=== PATIENT | female | born 1980 | race Caucasian/White ===

== ENCOUNTER 2017-05-13 08:22 | Day surgery (SDC) | payer OTHER ==
--- NOTE | 2017-05-12 19:21 | PDGENHP ---
History and Physical - Chief Complaint R HIP PAIN - History of Present Illness 1. Right~Femoroacetabular impingement (GORDO) Mixed type 2. 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 Funmilayo's right~hip pain started several years ago, with marked~previous complaints~and with little~recalled trauma or injury. Presentation is of~posterior and anterolateral/deep right~hip pain. ~It is exacerbated by motion/exercise and sitting down. ~She does not use pain medication. The hip does~wake her~at night and does~click and catch on her. Sitting can be a real struggle for her. Daquandoes~report suffering from lower back pain episodes. Daquanhas~participated in physical therapy and has~tried other conservative measures including hip injections, chiropractic treatments, massage therapy, physical therapy, and muscle activation technique. She~has not~received sufficient symptomatic improvement. Daquanunderstands that she~has a hip and pelvis problem which should be researched and wishes to get a better understanding of her~hip status, followed by an establishment of a treatment strategy, hoping she~would be able to get back to her~well being active life. History: Past medical history: Sinus arrythmia s/p unsuccessful RF ablation, on atenolol; lumbar laminectomy L5 in 2004 with symptomatic improvement, hand fx Relevant familial history: None which is relevant Past surgical history: No. Surgery Anesthesia Year Outcome 1 SA node ablation General 2000 Not successful 2 Lumbar laminectomy L5 General 2004 Successful 3 L hand metacarpal ORIF General 1997 Successful Daquandenies problematic issues with general anesthesia in the past. I have reviewed, verified and agree with the past medical, surgical, family and social history. Current Medications:~has a current medication list which includes the following prescription(s): atenolol. ALLERGIES:~~has no known allergies. Objective: Physical Examination: Daquanis 5 feet 11~inches tall and weighs~144~Lbs. Currently, she~walks with a slightly antalgic (Trendelenburg)~gait. She~has~no leg length discrepancy and presents~with no~signs of joint laxity. She~is fit looking. ~~ Trendelenburg sign is positive on the right and proprioception~is reduced, both~ sides. Lower spine examination is negative~for sciatic or femoral nerve irritation with negative~SLR &~femoral stretch tests. Range of motion of the spine is~ limited with forward flexion~(and normal for~extension and rotations with no~ associated pain. SIJs examination is~produces pain on right side with abnormal right~SHYANNE~in relation and local tenderness. Strength, Sensation and pulses are normal - bilaterally Ankles and knees exams are normal~and no~mal-alignment is evident. Hip ROM (degrees): ER At 90~hip FL IR At 90~hip FL IR Neutral hip ER Neutral hip AB AD FL EX R 45 10 pain 30 30-35 45 pain 5 95 pain 10-15 L 45 25 40 25 45 10 100 10-15 Specific hip and pelvis tests: Quadrant SHYANNE Roll Add. Longus R ++ +++ + +++ L + + Negative Negative Glut. Med ITB Pos. Imp R +++ Negative (weaker than left side) Negative L Negative Negative Negative Squeeze test measured normal. Bony Symphysis pubis is painful to touch while concentric activity of the rectus abdominis, does~produce pain at its insertion. Ilio Psos specific tests are~positive for pain during cycling for the right hip~ and remarkable for painful snap~and negative for pain during cycling for the left hip~ Greater trochanteric burse is pain free on the left hip and painful on the right hip. Piriformis tests: FAIR is negative, with no local signs of neuritis related to sciatic nerve. Thigh circumference is symmetric with no evidence for muscle atrophy on either~ side. Hamstrings tests are negative for left and positive for right for both functional contraction and~tendinopathy On a daily basis, the following percentages reflect Funmilayo's overall total pain on the right hip/thigh region: Deep hip: 30% Lateral thigh: 10% Hamstrings (posterior/buttock): ~40-50% Imaging: Radiology studies which I~have personally reviewed, analyzed and measured are below: XR: AP of the hip and pelvis: Performed in a suboptimal~technique Specific measurements show: NSA~ Lat. Cam LCE Lat. Pincer C.Over~sign Act. Depth A.I~% Head~Coverage % Sourcil~Angle ATDmm R N + 33 + - ~ P N N 1.5 N L N + 37 ++ - P N N 0 N [place]~Lines are preserved. Marked Pathological signs are seen in the Symphysis Pubis. Marked Pathological signs are seen at the Ischial~tuberosity. ~~~~~~~~~~~~~ Pos. wall sign Sup. Lat. OA Joint Space-WBZ Joint Space-Medial SALT R + Negative 4.4 mm 4.6 mm 12 mm P/A wall distance ?~mm L Negative Negative 4 mm 3.6 mm 10 mm P/A wall distance 12~mm Sclerosis ~~Dysplasia Cysts ISS R + Negative Negative + L + Negative Negative Negative X Table lateral: Anterior cam lesion is seen~anteriorly both sides MRI shows: calcifcations in 12:00 R labrum, significant partial tearing of origin of hamstrings tendons from ischial tuberorsity; further, it supports the GORDO seen on XR and demonstrates chondrolabral junction damage and a labral tear anteriorly Impression and plan: Daquanis a 36 y.o.~active female~suffering from symptomatic right hip pain due to on going GORDO Mixed type, with~resultant labral tear, and R side hamstring tendon tear, causing significant disability to her~and altering~her~sport and life activities. Physical examination, imaging, and her~story correspond with the diagnosis mentioned above. I have explained the diagnosis and its significance to Daquanand we have discussed the various possible treatment options~and their implications~with her. With regard to her hip, these include proceeding with conservative treatment while continuing to modify her~activities to avoid aggravating the hip further, resuming anti pain medications or intra articular injections (when needed) which can give temporary relief, a hip arthroscopy aiming to address the above pathology. With regard to her hamstrings, this includes an open procedure to repair her partial tear. Daquanwill review the info presented. CT with 3D recon will be done in order to pre plan an accurate and optimal volume and location of bony resection. Daquanis happy with this plan. I have also supplied her~with handouts, outlining the expected surgical treatment and rehab involved. I wish Daquanall the best, ~~ Sebas Noonan MD History Information - Allergies/Home Medication List Allergies/Adverse Reactions: gluten Allergy (Verified 05/10/17 16:54) Home Medications: Atenolol [Tenormin 25 mg (*)] 11/29/15 [Last Taken 12/19/15 04:30] Restasis Opht Drops(*) 05/10/17 [Last Taken Unknown] I have personally reviewed and updated: medical history - Social History Smoking Status: Never smoked Review of Systems Review of Systems: Physical Exam Physical Exam:
[2017-05-13] MEDS ORDERED: ceFAZolin 2 GM/DEXTROSE 100 ML IV ONE (09:02)
[2017-05-13] MEDS ORDERED: ACETAMINOPHEN 500 MG TAB PO ONE (09:02)
[2017-05-13] MEDS ORDERED: PREGABALIN 150 MG CAP PO ONE (09:02)
[2017-05-13] MEDS ORDERED: LR 1,000 ML IV ONE (09:03)
[2017-05-13] MEDS ORDERED: LIDOCAINE 1% 2 ML INJ ID PRN (09:03)
[2017-05-13] MEDS ORDERED: BUPIVACAINE 0.25% 30 ML SDV ONE (10:05)
[2017-05-13] MEDS ORDERED: MIDAZOLAM 2 MG/2 ML VIAL IVP ONE (12:44)
--- NOTE | 2017-05-13 12:47 | PDANEPAE ---
ANE History of Present Illness scar revision bilateral hips ANE Past Medical History - Cardiovascular History Hx Hypertension: No Hx Arrhythmias: Yes Hx Chest Pain: No Hx Coronary Artery / Peripheral Vascular Disease: No Hx CHF / Valvular Disease: No Hx Palpitations: No Cardiovascular History Comment: SA NODE ABLATION 2001 FOR SVT, on atenolol - Pulmonary History Hx COPD: No Hx Asthma/Reactive Airway Disease: No Hx Recent Upper Respiratory Infection: No Hx Oxygen in Use at Home: No Hx Sleep Apnea: No Sleep Apnea Screening Result - Last Documented: Negative - Neurologic History Hx Cerebrovascular Accident: No Hx Seizures: No Hx Dementia: No - Endocrine History Hx Diabetes: No - Renal History Hx Renal Disorders: No - Liver History Hx Hepatic Disorders: No - Neurological & Psychiatric Hx Hx Neurological and Psychiatric Disorders: No - Cancer History Hx Cancer: No - Congenital Disorder History Hx Congenital Disorders: No - GI History Hx Gastrointestinal Disorders: No - Chronic Pain History Chronic Pain: Yes (ZULEIKA HIPS) - Surgical History Prior Surgeries: 12/19/15 RIGHT HIP ARTHROSCOPY WITH KELLIE LYLY. 04/2015 ZULEIKA HIP SCOPE. ZULEIKA HAMSTRING REATTACHMENT. ZULEIKA HIP SCOPE. LUMBAR LAMINECTOMY. SINUS NODE ABLATION FOR SVT 2001 [facility]. LT HAND ORIF ANE Review of Systems Review of Systems: - Exercise capacity METS (RN): 6 METS ANE Patient History - Allergies Allergies/Adverse Reactions: gluten Allergy (Verified 05/10/17 16:54) - Home Medications Home Medications: Atenolol [Tenormin 25 mg (*)] 11/29/15 [Last Taken 05/13/17] Restasis Opht Drops(*) 05/10/17 [Last Taken 05/12/17] - NPO status NPO Since - Liquids (Date): 05/13/17 NPO Since - Liquids (Time): 06:00 NPO Since - Solids (Date): 05/12/17 NPO Since - Solids (Time): 21:00 - Anes Hx Anes Hx: post operative nausea and vomiting - Smoking Hx Smoking Status: Never smoked Marijuana use: No - Alcohol Use Alcohol Use: Occasionally - Family Anes Hx Family Hx Anesthesia Complications: NONE ANE Labs/Vital Signs - Vital Signs Blood Pressure: 104/58 Heart Rate: 58 Respiratory Rate: 16 O2 Sat (%): 97 Height: 180.34 cm Weight: 66.678 kg ANE Physical Exam - Airway Neck exam: FROM Mallampati Score: Class 1 Mouth exam: normal dental/mouth exam - Pulmonary Pulmonary: no respiratory distress - Cardiovascular Cardiovascular: regular rate and rhythym - ASA Status ASA Status: II ANE Anesthesia Plan Anesthesia Plan: GA w LMA (R/B/A explained and patient agrees to proceed.)
[2017-05-13] MEDS ORDERED: LIDOCAINE 2% 100 MG/5 ML SYR ONE (13:14)
[2017-05-13] MEDS ORDERED: PROPOFOL/EMULSION 500 MG/50 ML BOTTLE IV ONE ×3 (13:14→15:22)
[2017-05-13] MEDS ORDERED: DEXAMETHASONE 4 MG/ML VIAL ONE (13:14)
[2017-05-13] MEDS ORDERED: ONDANSETRON 4 MG/2 ML VIAL ONE (13:14)
[2017-05-13] MEDS ORDERED: fentaNYL 100 MCG/2 ML INJ ONE ×2 (13:14→17:39)
[2017-05-13] MEDS ORDERED: LIDOCAINE 2% JELLY 5 ML TUBE ONE (13:17)
[2017-05-13] MEDS ORDERED: PROPOFOL 200 MG/20 ML VIAL ONE (17:02)
[2017-05-13] MEDS ORDERED: METOCLOPRAMIDE 10 MG/2 ML VIAL IVP PRN (17:36)
[2017-05-13] MEDS ORDERED: ONDANSETRON 4 MG/2 ML VIAL IVP PRN (17:36)
[2017-05-13] MEDS ORDERED: ACETAMINOPHEN 500 MG TAB PO PRN (17:36)
[2017-05-13] MEDS ORDERED: NALOXONE HCL 0.4 MG/ML INJ IVP PRN (17:36)
[2017-05-13] MEDS ORDERED: HYDROCODONE/APAP 5/325 TAB PO PRN (17:36)
[2017-05-13] MEDS ORDERED: LR 500 ML IV PRN (17:36)
[2017-05-13] MEDS ORDERED: PROMETHAZINE HCL 25 MG/ML INJ IVP PRN (17:36)
[2017-05-13] MEDS ORDERED: OXYCODONE/APAP 5/325 TAB PO PRN (17:36)
[2017-05-13] MEDS ORDERED: MEPERIDINE 25 MG/ML SYR IVP PRN (17:36)
[2017-05-13] MEDS ORDERED: ALBUTEROL 3 ML DEYVIAL IH PRN (17:36)
[2017-05-13] MEDS ORDERED: DEXAMETHASONE 4 MG/ML VIAL IVP PRN (17:36)
[2017-05-13] MEDS ORDERED: LABETALOL HCL 5 MG/ML 20 ML MDV IVP PRN (17:36)
--- NOTE | 2017-05-13 17:38 | POSTANESTH ---
Post Anesthetic Evaluation Cardiovascular Status: Normal, Stable Respiratory Status: Normal, Stable Level of Consciousness/Mental Status: Can Participate in Eval Pain Control: Inadeq, Add Tx Required Nausea/Vomiting Control: Adequate, Prn Tx Ordered Complications Possibly Related to Anesthesia: None Noted
[2017-05-13] MEDS: fentaNYL 100 MCG/2 ML INJ IVP PRN ×2 (17:39→17:46)
[2017-05-13 19:06] VITALS: BP 106/61; PULSE 60; RESP 16; TEMP 97.7; O2SAT 98
== END 2017-05-13 19:05 | disposition home or self-care (01) ==
LOC: FSGY 08:22
PROVIDERS: ATTEND Orthopaedic Surgery Sports Medicine
PROC: 0JQN0ZZ Repair Right Lower Leg Subcutaneous Tissue and Fascia, Open Approach (ICD-10-PCS; principal; 2017-05-13 11:30)
PROC: 0JQL0ZZ Repair Right Upper Leg Subcutaneous Tissue and Fascia, Open Approach (ICD-10-PCS; principal; 2017-05-13 11:30)
DX: L90.5 Scar conditions and fibrosis of skin (principal); M70.61 Trochanteric bursitis, right hip
CPT/HCPCS: J0171; J0690; J1100; J2001; J2250; J2405; J2704; J3010